=== PATIENT | male | born 1995 | race Hispanic/Latino ===

== ENCOUNTER 2025-07-25 23:51 | Emergency (ER) | payer BC ==
[2025-07-26] MEDS ORDERED: KETOROLAC 30 MG/ML INJ ONE (00:18)
[2025-07-26] MEDS ORDERED: NA CHLORIDE 0.9% 1,000 ML ONE (00:18)
[2025-07-26 00:25] LABS: Absolute Lymphocytes (CBC) 3.8 K/uL (0.7-4.9); Hematocrit 38.9 % (39.6-49.0); Hemoglobin 13.1 g/dL (13.6-17.9); MCH 27.1 pg (27.0-35.0); MCHC 33.8 g/dL (32.0-36.0); MCV 80.3 fL (80-100); MPV 8.3 fL (7.6-11.3); Nucleated RBC Absolute Count 0.0 (0-0); Nucleated Red Blood Cells % 0.1 % (0-0); RBC Red Blood Cell Count 4.85 M/uL (4.33-5.43); White Blood Count 10.60 thou/uL (4.3-10.9)
[2025-07-26 01:27] LABS: Anion Gap 9.5 mEq/L (5.0-15.0); BUN Blood Urea Nitrogen 16.0 mg/dL (7-18); Glucose Level 121.0 mg/dL (74-106); Potassium 3.5 mEq/L (3.5-5.1); Troponin High Sensitivity 15.0 pg/mL (<58.9)
--- NOTE | 2025-07-26 01:29 | ER ---
Nurse's Notes [facility] Name: Cecilio Reid Age: 30 yrs Sex: Male : 1995 Arrival Date: 07/25/2025 Time: 23:51 Bed 6 Private MD: Diagnosis: Costochondritis Presentation: 07/25 23:58 Chief complaint: Patient states: left sided chest pain that has been happening on and vc1 off for a few days. Coronavirus screen: Client denies travel out of the [place] in the last 14 days. At this time, the client does not indicate any symptoms associated with coronavirus-19. Ebola Screen: Patient negative for fever greater than or equal to 101.5 degrees Fahrenheit, and additional compatible Ebola Virus Disease symptoms Patient denies exposure to infectious person. Patient denies travel to an Ebola-affected area in the 21 days before illness onset. No symptoms or risks identified at this time. Initial Sepsis Screen: Does the patient meet any 2 criteria? No. Patient's initial sepsis screen is negative. Does the patient have a suspected source of infection? No. Patient's initial sepsis screen is negative. Risk Assessment: Do you want to hurt yourself or someone else? Patient reports no desire to harm self or others. Onset of symptoms was July 22, 2025. 23:58 Method Of Arrival: Ambulatory vc1 23:58 Acuity: BLANCA 3 vc1 Triage Assessment: 07/26 00:00 General: Appears in no apparent distress. uncomfortable, obese, Behavior is calm, vc1 cooperative, appropriate for age. Pain: Complains of pain in anterior aspect of left upper chest Pain radiates to left lateral anterior chest Also complains of no other associated symptoms. EENT: No deficits noted. No signs and/or symptoms were reported regarding the EENT system. Neuro: Level of Consciousness is awake, alert, obeys commands, Oriented to person, place, time, situation, Appropriate for age. Cardiovascular: Reports chest pain, Capillary refill < 3 seconds Patient's skin is warm and dry. Respiratory: Airway is patent Respiratory effort is even, unlabored, Respiratory pattern is regular, symmetrical. GI: No deficits noted. No signs and/or symptoms were reported involving the gastrointestinal system. : No deficits noted. No signs and/or symptoms were reported regarding the genitourinary system. Derm: Skin is intact, is healthy with good turgor, Skin is dry, Skin is normal, Skin temperature is warm. Musculoskeletal: Circulation, motion, and sensation intact. Range of motion: intact in all extremities. Historical: - Allergies: 07/25 23:59 No Known Allergies; vc1 - Home Meds: 23:59 lisinopril 10 mg Oral tablet [Active]; vc1 - PMHx: 23:59 Hypertensive disorder; Pre diabetic; vc1 - PSHx: 23:59 None; vc1 - Immunization history:: Adult Immunizations up to date. - Infectious Disease History:: Denies. - Social history:: Smoking status: Patient denies any tobacco usage or history of. Screenin/24 00:00 Abuse screen: Denies threats or abuse. Nutritional screening: No deficits noted. vc1 Tuberculosis screening: No symptoms or risk factors identified. 00:38 [facility] ED Fall Risk Assessment (Adult) History of falling in the last 3 months, jb4 including since admission No falls in past 3 months (0 pts) Confusion or Disorientation No (0 pts) Intoxicated or Sedated No (0 pts) Impaired Gait No (0 pts) Mobility Assist Device Used No (0 pt) Altered Elimination No (0 pt) Score/Fall Risk Level 0 - 2 = Low Risk Oriented to surroundings, Maintained a safe environment. Assessment: 00:38 Reassessment: Patient appears in no apparent distress at this time. Patient and/or jb4 family updated on plan of care and expected duration. Pain level reassessed. Patient is alert, oriented x 3, equal unlabored respirations, skin warm/dry/pink. 01:42 Reassessment: Patient appears in no apparent distress at this time. Patient and/or jb4 family updated on plan of care and expected duration. Pain level reassessed. Patient is alert, oriented x 3, equal unlabored respirations, skin warm/dry/pink. Vital Signs: 07/25 23:58 BP 157 / 100; Pulse 97; Resp 18; Temp 98; Pulse Ox 98% ; Weight 115.67 kg; Height 5 ft. vc1 10 in. ; 07/26 00:38 BP 141 / 96; Pulse 96; Resp 16; Pulse Ox 97% on R/A; jb4 01:00 BP 121 / 72; Pulse 84; Resp 16; Pulse Ox 96% on R/A; jb4 07/25 23:58 Body Mass Index 36.59 (115.67 kg, 177.8 cm) vc1 ED Course: 07/25 23:53 Patient arrived in ED. mf3 23:53 [facility]C [facility]. dr5 23:53 Hank Sahni MD is Attending Physician. dr5 23:59 Triage completed. vc1 07/26 00:00 Arm band placed on right wrist. vc1 00:09 IV discontinued, intact, bleeding controlled, No redness/swelling at site. Pressure jb4 dressing applied. Inserted saline lock: 18 gauge in left forearm, using aseptic technique. Blood collected. 00:12 Basic Metabolic Panel Sent. jb4 00:12 CBC with Diff Sent. jb4 00:12 Troponin HS Sent. jb4 00:38 Patient has correct armband on for positive identification. Bed in low position. Call jb4 light in reach. Side rails up X 1. Provided Education on: plan of care. 00:38 No provider procedures requiring assistance completed. jb4 00:49 XRAY Chest (1 view) In Process Unspecified. EDMS Administered Medications: 00:27 Drug: NS 0.9% IV 1000 ml IV at 1000 ml once; to be given as a bolus over 60 minutes jb4 Route: IV; Rate: 1000 ml; Site: left antecubital; 01:31 Follow up: IV Status: Completed infusion cp4 00:27 Drug: Ketorolac IVP 15 mg IVP once Route: IVP; Site: left antecubital; jb4 01:30 Follow up: Response: No adverse reaction; Pain is decreased cp4 Medication: 00:38 VIS not applicable for this client. jb4 Outcome: 01:28 Discharge ordered by . dr5 01:40 Discharged to home ambulatory, jb4 01:40 Condition: stable 01:40 Discharge instructions given to patient, Instructed on discharge instructions, follow up and referral plans. medication usage, Demonstrated understanding of instructions, follow-up care, medications, Prescriptions given X 2, 01:44 Patient left the ED. jb4 Signatures: Dispatcher [employer] EDMS Noah Yanez RN RN jb4 Joy Velasquez RN RN vc1 Georgina Mukherjee cp4 Manolo Mata FNP-C HUMAN RESOURCES VICE PRESIDENT-[facility]5 Altagracia Patel RN RN mf3 Corrections: (The following items were deleted from the chart) 00:09 Discharged to home ambulatory, jb4 jb4 00:09 Condition: stable jb4 jb4 00: Discharge instructions given to patient, Instructed on discharge instructions, jb4 follow up and referral plans. medication usage, Demonstrated understanding of instructions, follow-up care, medications, Prescriptions given X 2, jb4
--- NOTE | 2025-07-26 01:29 | EDPHYS ---
Physician Documentation [facility] Name: Cecilio Reid Age: 30 yrs Sex: Male : 1995 Arrival Date: 07/25/2025 Time: 23:51 Bed 6 Private MD: ED Physician Hank Sahni HPI: 07/26 00:00 This 30 yrs old Male presents to ER via Ambulatory with complaints of dr5 Left-sided chest pain. 00:00 Onset: The symptoms/episode began/occurred 3 day(s) ago. Patient is a 30-year-old male dr5 with history of hypertension and prediabetic coming in with left-sided chest pain and left back this been intermittent for the past 3 days. Patient reports that the pain is worse when he palpates on it and when he lays on his left side. Patient denies shortness of breath, nausea, vomiting, diarrhea, fever, or cough.. Historical: - Allergies: 07/25 23:59 No Known Allergies; vc1 - Home Meds: 23:59 lisinopril 10 mg Oral tablet [Active]; vc1 - PMHx: 23:59 Hypertensive disorder; Pre diabetic; vc1 - PSHx: 23:59 None; vc1 - Immunization history:: Adult Immunizations up to date. - Infectious Disease History:: Denies. - Social history:: Smoking status: Patient denies any tobacco usage or history of. ROS: 07/26 00:00 Constitutional: as per hpi dr5 Exam: 00:00 Constitutional: This is a well developed, well nourished patient who is awake, alert, dr5 and in no acute distress. Head/Face: Normocephalic, atraumatic. Eyes: Pupils equal round and reactive to light, extra-ocular motions intact. Lids and lashes normal. Conjunctiva and sclera are non-icteric and not injected. Cornea within normal limits. Periorbital areas with no swelling, redness, or edema. Neck: Trachea midline, no thyromegaly or masses palpated, and no cervical lymphadenopathy. Supple, full range of motion without nuchal rigidity, or vertebral point tenderness. No Meningismus. Chest/axilla: Normal chest wall appearance and motion. Nontender with no deformity. No lesions are appreciated. Respiratory: Lungs have equal breath sounds bilaterally, clear to auscultation. No rales, rhonchi or wheezes noted. No increased work of breathing, no retractions or nasal flaring. Back: No spinal tenderness. No costovertebral tenderness. Full range of motion. Skin: Warm, dry with normal turgor. Normal color with no rashes, no lesions, and no evidence of cellulitis. MS/ Extremity: Pulses equal, no cyanosis. Neurovascular intact. Full, normal range of motion. Tenderness to palpation to the left chest. Neuro: Awake and alert, GCS 15, oriented to person, place, time, and situation. Cranial nerves II-XII grossly intact. Motor strength 5/5 in all extremities. Sensory grossly intact. Cerebellar exam normal. Normal gait. Vital Signs: 07/25 23:58 BP 157 / 100; Pulse 97; Resp 18; Temp 98; Pulse Ox 98% ; Weight 115.67 kg; Height 5 ft. vc1 10 in. ; 07/26 00:38 BP 141 / 96; Pulse 96; Resp 16; Pulse Ox 97% on R/A; jb4 01:00 BP 121 / 72; Pulse 84; Resp 16; Pulse Ox 96% on R/A; jb4 07/25 23:58 Body Mass Index 36.59 (115.67 kg, 177.8 cm) vc1 MDM: 07/25 23:54 Medical Screening Exam initiated dr5 07/26 01:32 Differential Diagnosis Costochondritis, anemia, acute kidney injury, NSTEMI, ND. Data dr5 reviewed: vital signs, nurses notes, lab test result(s), cardiac enzymes, troponin i, CBC, white blood cell count, hemoglobin, hematocrit, platelets, electrolytes, sodium, potassium, chloride, serum bicarbonate, BUN, creatinine, serum glucose, EKG, radiologic studies, plain films. Consideration of Admission/Observation Escalation of care including admission/observation considered. Escalation considered patient found to have elevated troponin or abnormality on x-ray. I considered the following discharge prescriptions or medication management in the emergency department I discussed and recommended Over The Counter medications, Medications were administered in the Emergency Department. See MAR. Independent interpretation of the following test(s) in the Emergency Department X-Ray: My interpretation is Independent interpretation of x-ray does not reveal infiltrates concerning for pneumonia. Test considered but Not performed: CT: CT scan considered of chest but patient symptoms are relieved and labs are unremarkable. Care significantly affected by the following chronic conditions: Hypertension, Prediabetic. Care significantly affected by the following Social Determinants of Health: Poor access to healthcare and/or lack of insurance, Poor access to transportation, Problems related to employment. Counseling: I had a detailed discussion with the patient and/or guardian regarding the historical points, exam findings, and any diagnostic results supporting the discharge/admit diagnosis, the presence of at least one elevated blood pressure reading (>120/80) during this emergency department visit, lab results, radiology results, the need for outpatient follow up, for definitive care, a family practitioner, to return to the emergency department if symptoms worsen or persist or if there are any questions or concerns that arise at home. Medication response: Toradol relieved patient's pain. The symptoms have resolved. Response to treatment: the patient's symptoms have resolved after treatment, the patient's condition has returned to base line, the patient is now symptom free. Admission orders: after a detailed discussion of the patient's condition and case, the admit orders are written by me. Special discussion: I have referred the patient to see his PCP for further evaluation of high blood pressure. I discussed with the patient/guardian in detail that at this point there is no indication for admission to the hospital. It is understood, however, that if the symptoms persist or worsen the patient needs to return immediately for re-evaluation. Based on the history and exam findings, there is no indication for further emergent testing or inpatient evaluation. I discussed with the patient/guardian the need to see the primary care provider for further evaluation of the symptoms. ED course: Labs printed and given to patient to take with him to primary care doctor. Will cover patient for pleurisy versus costochondritis. Patient denies any symptoms at this time. Blood pressure normalized during ER stay. All questions answered. Strict ER precautions given. 01:36 ED course: Chest X-ray 1 View: Single portable AP upright view of the chest. Normal dr5 size of the cardiac silhouette. Elevation of the right hemidiaphragm. No pulmonary vascular congestion. No focal consolidation, pleural effusion, or pneumothorax. No acute osseous abnormality. IMPRESSION: No acute radiographic abnormality.. 07/26 00:00 Order name: Basic Metabolic Panel; Complete Time: : dr5 07/26 00:00 Order name: CBC with Diff; Complete Time: 36 dr5 07/26 00:00 Order name: Troponin HS; Complete Time: 01: [facility] 07/26 00:00 Order name: XRAY Chest (1 view) [facility] 07/26 00:00 Order name: Cardiac monitoring; Complete Time: 00: [facility] 07/26 00:00 Order name: EKG - Nurse/Tech; Complete Time: 00: [facility] 07/26 00:00 Order name: IV Saline Lock; Complete Time: 00: [facility] 07/26 00:00 Order name: Labs collected and sent; Complete Time: 00: [facility] 07/26 00:00 Order name: O2 Per Protocol; Complete Time: 00: [facility] 07/26 00:00 Order name: O2 Sat Monitoring; Complete Time: 00: [facility] 07/26 00:32 Order name: Misc. Order: RECOLLECT GREEN TOP; Complete Time: 01:00 rv1 EC:02 Rate is 96 beats/min. Rhythm is regular. QRS [place] is Normal. MD interval is normal at dr5 126 msec. QRS interval is normal at 80 msec. QT interval is normal at 346 msec. Clinical impression: Normal ECG and No evidence of ischemia. Administered Medications: 00:27 Drug: NS 0.9% IV 1000 ml IV at 1000 ml once; to be given as a bolus over 60 minutes jb4 Route: IV; Rate: 1000 ml; Site: left antecubital; 01:31 Follow up: IV Status: Completed infusion cp4 00:27 Drug: Ketorolac IVP 15 mg IVP once Route: IVP; Site: left antecubital; jb4 01:30 Follow up: Response: No adverse reaction; Pain is decreased cp4 Disposition Summary: 07/26/25 01:28 Discharge Ordered Notes: Location: Home dr5 Condition: Stable dr5 Diagnosis - Costochondritis dr5 Followup: dr5 - With: Emergency Department - When: As needed - Reason: Worsening of condition Followup: dr5 - With: Private Physician - When: 1 - 2 days - Reason: Recheck today's complaints, Continuance of care, Re-evaluation by your physician Discharge Instructions: - Discharge Summary Sheet dr5 - Costochondritis, [id number] dr5 Forms: - Medication Reconciliation Form dr5 - Patient Portal Instructions dr5 - Leadership Thank You Letter dr5 Prescriptions: - Ibuprofen 800 mg Oral Tablet - take 1 tablet ORAL route every 12 hours As needed take with food; 20 tablet; dr5 Refills: 0, Product Selection Permitted - Medrol (Jm) 4 mg Oral Tablets, Dose Pack - take 1 tablet ORAL route as directed - follow package instructions; 1 packet; dr5 Refills: 0, Product Selection Permitted Signatures: Dispatcher [employer] Noah eDxter, RN RN jb4 Joy Velasquez RN RN vc1 Stella Smith rv1 Manolo Mata, MACHINE STACKER-C MACHINE STACKER-Cdr5 Georgina Mukherjee cp4 Corrections: (The following items were deleted from the chart) 00:01 00:01 BASIC METABOLIC PANEL+C.LAB.BRZ ordered. EDMS EDMS 00:01 00:01 CBC+H.LAB.BRZ ordered. EDMS EDMS 00:01 00:01 Troponin High Sensitivity+C.LAB.BRZ ordered. EDMS EDMS 00:01 00:01 Chest Single View+RAD.RAD.BRZ ordered. EDMS EDMS
[2025-07-26 01:49] VITALS: TEMP 98
[2025-07-26 01:52] VITALS: BP 121/72; O2SAT 96
--- NOTE | 2025-07-26 06:04 | RAD REPORT ---
EXAM DESCRIPTION: Chest Single View [employer]Lex: XR CHEST 1 VIEW CLINICAL HISTORY: 30 years Male, CHEST PAIN COMPARISON: None. FINDINGS: Single portable AP upright view of the chest. Normal size of the cardiac silhouette. Elevation of the right hemidiaphragm. No pulmonary vascular congestion. No focal consolidation, pleural effusion, or pneumothorax. No acute osseous abnormality. IMPRESSION: No acute radiographic abnormality. Electronically signed by: Cherise Lawrence MD 07/26/2025 01:08 AM CDT RP Due to temporary technical issues with the PACS/[employer] reporting system, reports are being aditi d by the in-house radiologist without review as a courtesy to ensure prompt reporting the interpreting radiologist is fully responsible for the content of the report. Transcribed Date/Time: 07/26/2025 6:03 AM
== END 2025-07-26 01:44 | disposition home or self-care (01) ==
LOC: ER 23:51
DX: M94.0 Chondrocostal junction syndrome [Tietze] (principal); I10 Essential (primary) hypertension
CPT/HCPCS: 96361; 93005; 85025; 80048; 36415; 84484; 71045; 96374; 99284; J7030; J1885